=== PATIENT | female | born 1940 | race Caucasian/White ===

== ENCOUNTER 2019-03-07 19:17 | Emergency (ER) | payer BC ==
[2019-03-07 19:29] VITALS: BP 136/92; PULSE 67; RESP 18; TEMP 97.9
[2019-03-07] MEDS ORDERED: GELATIN SPONGE,ABSORB (SMALL) 1 EACH SPONGE TOPICAL STA (19:40)
[2019-03-07] MEDS ORDERED: DIPH,PERTUS(ACELL)TETVAC-LF 0.5 ML VIAL IM ONE (19:40)
--- NOTE | 2019-03-07 19:46 | ED ---
General Adult HPI - General Chief complaint: Wound/Laceration Stated complaint: Thumb lac Time Seen by Provider: 03/07/19 19:31 Source: patient, RN notes reviewed Mode of arrival: ambulatory Limitations: no limitations - History of Present Illness Initial comments: 78-year-old female presents to the emergency department for a chief complaint of laceration to the left thumb. Patient states she was slicing onions when she cut her left thumb. Patient is not up-to-date on tetanus. Patient denies any other injuries. Patient denies any decreased range of motion of the left thumb.Patient has no other complaints at this time including shortness of breath, chest pain, abdominal pain, nausea or vomiting, headache, or visual changes. - Related Data Allergies Allergy/AdvReac Type Severity Reaction Status Date / Time No Known Allergies Allergy Verified 03/07/19 19:27 Review of Systems ROS Statement: Those systems with pertinent positive or pertinent negative responses have been documented in the HPI. ROS Other: All systems not noted in ROS Statement are negative. Past Medical History Past Medical History: No Reported History History of Any Multi-Drug Resistant Organisms: None Reported Past Surgical History: Adenoidectomy, Appendectomy, Bowel Resection, Hysterectomy, Tonsillectomy Additional Past Surgical History / Comment(s): gastric sleeve Past Psychological History: No Psychological Hx Reported Smoking Status: Never smoker Past Alcohol Use History: None Reported Past Drug Use History: None Reported General Exam Limitations: no limitations General appearance: alert, in no apparent distress Head exam: Present: atraumatic, normocephalic, normal inspection Eye exam: Present: normal appearance, PERRL, EOMI. Absent: scleral icterus, conjunctival injection, periorbital swelling ENT exam: Present: normal exam, mucous membranes moist Neck exam: Present: normal inspection. Absent: tenderness, meningismus, lymphadenopathy Respiratory exam: Present: normal lung sounds bilaterally. Absent: respiratory distress, wheezes, rales, rhonchi, stridor Cardiovascular Exam: Present: regular rate, normal rhythm, normal heart sounds. Absent: systolic murmur, diastolic murmur, rubs, gallop, clicks Extremities exam: Present: full ROM (Full range of motion of the left thumb), normal capillary refill (cap refill < 2 seconds in the left thumb), other (Patient has superficial avulsion injury to the distal aspect of the palmar aspect left thumb). Absent: tenderness, pedal edema, joint swelling, calf tenderness Course Vital Signs 03/07/19 19:27 Temperature 97.9 F Pulse Rate 67 Respiratory 18 Rate Blood Pressure 136/92 O2 Sat by Pulse 97 Oximetry Procedures - Laceration Laceration #1 Consent Obtained: verbal consent Indication: laceration Site: hand Size (cm): 1 Description: avulsion Depth: simple, single layer Pre-repair: wound explored, irrigated extensively (with saline pressure irrigation) Size of Sutures: other (gelfoam) Medical Decision Making - Medical Decision Making Superficial avulsion injury noted to the distal left thumb. Gelfoam applied After wound is thoroughly cleaned. Bleeding controlled. Tetanus updated. Patient will follow up with primary care. She'll return if she has any worsening symptoms. Discussed return parameters including those for infection. Disposition Clinical Impression: Laceration Disposition: HOME SELF-CARE Condition: Good Instructions (If sedation given, give patient instructions): Laceration (ED) Additional Instructions: Keep area clean and dry for 24-48 hours. Do not peel off Gelfoam. You may try to soak off the Gelfoam. Follow-up with primary care in 1-2 days. Return to the emergency department if you have any worsening symptoms including but not limited to signs of infection. Is patient prescribed a controlled substance at d/c from ED?: No Referrals: Nonstaff,Physician [Primary Care Provider] - 1-2 days Time of Disposition: 20:54
== END 2019-03-07 21:05 | disposition home or self-care (01) ==
LOC: EC 19:17
DX: S61.012A Laceration without foreign body of left thumb without damage to nail, initial encounter (principal); Z23 Encounter for immunization; W26.0XXA Contact with knife, initial encounter; Y93.G3 Activity, cooking and baking
CPT/HCPCS: 12001; 90471; 90715; 99282